=== PATIENT | male | born 1975 | race African-American/Black ===

== ENCOUNTER 2019-07-05 18:54 | Emergency (ER) | payer SELFPAY ==
[~2019-07-05] VITALS: Ht 180.3 cm; Wt 98.0 kg
[2019-07-05 19:44] VITALS: BP 158/91
[2019-07-05] MEDS ORDERED: BUPIVACAINE/PF 0.5% ONE (19:56)
[2019-07-05] MEDS ORDERED: LIDOCAINE-MPF 1%, 5ML ONE (19:56)
--- NOTE | 2019-07-05 20:55 | NUR ---
REPORT FROM GARRETT CANO
[2019-07-05] MEDS ORDERED: NEOSPORIN OINT. PKT 1 PACKET ONE (21:08)
--- NOTE | 2019-07-05 21:18 | NUR ---
Patient/Caregiver given discharge instructions and they have confirmed that they understand the instructions. Patient ambulatory with steady gait.
== END 2019-07-05 21:19 | disposition home or self-care (01) ==
LOC: ED 20:50
DX: L03.012 Cellulitis of left finger (principal)
CPT/HCPCS: 64450; 99284

== ENCOUNTER 2019-08-31 10:30 | Emergency (ER) | payer OTHER ==
[~2019-08-31] VITALS: Ht 177.8 cm; Wt 94.3 kg
[2019-08-31 10:33] VITALS: BP 136/86
[2019-08-31] MEDS ORDERED: LIDOCAINE-MPF 1%, 2ML ONE (11:01)
[2019-08-31] MEDS ORDERED: CEFTRIAXONE 250 MG ONE (11:01)
[2019-08-31] MEDS ORDERED: AZITHROMYCIN 500 MG TABLET ONE (11:01)
[2019-08-31] MEDS ORDERED: CEFTRIAXONE 250 MG IM ONE (11:30)
[2019-08-31] MEDS ORDERED: AZITHROMYCIN 500 MG TABLET PO ONE (11:30)
== END 2019-08-31 11:29 | disposition home or self-care (01) ==
LOC: ED 11:12
DX: N34.2 Other urethritis (principal); F17.200 Nicotine dependence, unspecified, uncomplicated; R30.0 Dysuria
CPT/HCPCS: 96372; 99283; J0696